=== PATIENT | male | born 1965 | race Caucasian/White ===

== ENCOUNTER 2016-12-13 09:41 | Observation (INO) | payer BC ==
[~2016-12-13] VITALS: Ht 177.8 cm; Wt 97.5 kg
[2016-12-13] MEDS ORDERED: GLUCOPHAGE500 MG PO (10:45)
[2016-12-13] MEDS ORDERED: DOXYCYCLINE IR-40 MG PO (10:45)
[2016-12-13 11:40] LABS: HEMOGLOBIN 16.1 gm/dl (14.0-17.5); RED BLOOD COUNT 5.33 M/UL (4.20-5.50); WHITE BLOOD COUNT 7.8 K/UL (4.5-11.0)
[2016-12-13 12:11] LABS: BUN/CREATININE RATIO 20 (0-10)
[2016-12-14] MEDS ORDERED: AUGMENTIN 875-1 EACH PO (14:07)
[2016-12-14] MEDS ORDERED: COLACE 100MG C100 MG PO (14:07)
[2016-12-14] MEDS ORDERED: LORCET PLUS 7.1 EACH PO (14:09)
== END 2016-12-14 15:08 | disposition home or self-care (01) ==
LOC: MED SURG 4 09:41
PROVIDERS: ADMIT Surgery
PROC: 0J9C0ZZ Drainage of Pelvic Region Subcutaneous Tissue and Fascia, Open Approach (ICD-10-PCS; principal; 2016-12-13 15:45)
DX: L02.31 Cutaneous abscess of buttock (principal); E11.9 Type 2 diabetes mellitus without complications; E78.5 Hyperlipidemia, unspecified; I10 Essential (primary) hypertension; E55.9 Vitamin D deficiency, unspecified; Z79.4 Long term (current) use of insulin; Z79.899 Other long term (current) drug therapy
CPT/HCPCS: 36415; 80053; 82962; 83036; 85027; 87070; 87077; 87186; 87205; G0378; G0379; J1200; J1335; J1650; J2250; J2405; J3010; J7050; J7120